=== PATIENT | female | born 1935 | race Caucasian/White ===

== ENCOUNTER 2017-06-11 10:24 | Inpatient (IN) ==
--- NOTE | 2017-06-11 13:13 | Internal Med History&Physical ---
Medical - H&P: HPI Patient information: Note initiated : 06/11/17 at 1:11 pm Service Date, if different from initiated Date: [] Patient: Sarahi Gregory 82 y/o F admitted on 06/11/17 for Refractory Acute Nausea/vomitting, renal failure. Chief Complaint: [] History of present illness: Ms. Gregory is a 82 year old F with a history of atrial fibrillation, on warfarin, hypertension, CKD stage III. She is admitted from Dr. Sauceda's office for worsening renal function in the setting of ongoing nausea and vomiting History is obtained in speaking with the patient, as well as reviewing old records as summarized below. Patient states for the last 2-3 weeks she has had constant nausea when she is moving. When she gets up from supine position to start moving around she becomes nauseated and has emesis. She also has emesis after almost any oral intake, regurgitating partially digested food. If she is able to lie down after a bout of emesis, the nausea passes because of this she's had poor oral intake for over 2 weeks. This is not associated with vertiginous or lightheaded symptoms. She does have a history of vertigo, associated with rolling in the bed were arising rapidly, those symptoms last occurred several years ago. Her current symptoms are not similar. She is experienced no lightheadedness, presyncopal changes, vision changes associated with her nausea. It is also not associated with abdominal pain, odynophagia or dysphagia. She does have a history of reflux and erosive esophagitis, which were associated with heartburn like symptoms. She is currently not having any of those symptoms. She remains on a PPI. She's had no hearing changes, no tinnitus, no vertigo. She's had no fevers, chills, face pressure, sinus or nasal congestion. She's had no gait disturbances, no vision changes, no discoordination, no focal weaknesses. The patient had been on prior DEXA for stroke prophylaxis, that was stopped about 2 months ago and switched to warfarin. That was stopped on Thursday to see if warfarin was causing her symptoms, if anything she thinks they may be a little worse. She had Zofran on hand at home from a prior UTI which is associated with nausea, that is not helped her symptoms. During this time, she has had about a 10 pound weight loss. She had labs drawn on the in preparation for an office visit with Dr. Sauceda today. Her creatinine at baseline is 1.8 at last check, it was 3.5. Urinalysis at that time did not indicate urinary tract infection. She is now being admitted for acute renal failure chronic kidney disease and intractable nausea and vomiting. All systems: reviewed and no additional remarkable complaints except as stated Medical - H&P: PMH Medical history: Hypertensive renal disease (Chronic) Hypertension, essential (Chronic) Hyperlipidemia (Chronic) Chronic kidney disease, stage III (moderate) (Chronic) Hypercalcemia (Chronic) Hypokalemia (Chronic) Atrial fibrillation (Chronic) Anxiety disorder (Chronic) Allergic rhinitis (Chronic) Sleep apnea (Chronic) Prediabetes (Chronic) Osteoporosis (Chronic) Obesity (Chronic) Fracture of radius and ulna, closed (Chronic) Esophageal reflux (Chronic) Dysphagia (Chronic) Depressive disorder (Chronic) Basal cell carcinoma of skin (Chronic) Postmenopausal atrophic vaginitis (Chronic) Open fracture of alveolar ridge of maxilla (Acute) Encounter for surgical aftercare following surgery of nervous system (Chronic) 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) Surgical history: History of varicose vein stripping (Chronic) 1971 Status post JUMANA-BSO (Chronic) 1982 History of surgery (Chronic) 11/17/2013; Excision; Skin, lower lip History of discectomy (Chronic) 1978; For ruptured disc History of removal of cyst (Chronic) 1998; Finger History of arthroscopy (Chronic) 1997; Bilateral torn cartilage History of appendectomy (Chronic) 1955 Pertinent family history: Mother Family history of malignant neoplasm of ovary Hypertension Father Hypertension Social history: smoking status: Never smoker alcohol intake frequency: does not drink Medical - H&P: Meds Home Medications Medication Instructions Recorded Confirmed Type diltiazem HCl, Sustained Release 1 cap PO BID 11/15/14 06/11/17 History ascorbic acid (vitamin C) 1,000 mg 1 g PO QDAY tab 01/07/16 06/11/17 History tablet cholecalciferol (vitamin D3) 1,000 1,000 unit PO QDAY #30 cap 09/11/16 06/11/17 Rx unit capsule venlafaxine ER 150 mg 150 mg PO QDAY #90 cap 04/06/17 06/11/17 Rx capsule,extended release 24 hr spironolactone 25 mg tablet 12.5 mg PO QDAY #15 tab 06/09/17 06/11/17 Rx Allergies Allergy/AdvReac Type Severity Reaction Status Date / Time metformin AdvReac Intermediate Dizziness Verified 06/11/17 09:42 lisinopril AdvReac Mild Fatigued Verified 06/11/17 09:42 Medical - H&P: Exam - Constitutional Vitals: Temp Pulse Resp BP Pulse Ox 96.8 F L 93 H 18 134/98 93 06/11/17 12:24 06/11/17 12:24 06/11/17 12:24 06/11/17 12:24 06/11/17 12:24 Exam: General: Alert, in no acute distress HEENT: Normocephalic. Pupils are equally round and reactive to direct and indirect light. Extraocular movements are intact, no horizontal or vertical nystagmus. Sclera are anicteric. No conjunctival injection. Oropharynx is with moist mucous membranes, no lip or gum lesions. Tongue is midline. Neck: Supple, no meningismus. No thyromegaly. Chest: Clear to auscultation bilaterally with no rales or wheezes. No accessory muscle use. Cardiovascular: Irregularly irregular with 2/6 systolic murmur across the precordium. Carotid pulses are 2+ without bruit. There is no lower extremity edema. JVP is normal. Abdomen: Soft, no epigastric or other tenderness, no guarding or rebound. Active bowel sounds. No hepatosplenomegaly. Lymphatic: No cervical or supraclavicular lymphadenopathy. Skin: Warm, dry. No rash. Skin turgor is decreased Musculoskeletal: No joint erythema or tenderness. Normal range of motion in the upper and lower extremities. Digits without cyanosis or clubbing. Neuro: Alert, oriented X3. Cranial nerves II through XII intact (visual fileds not tested). Sensation intact to light touch. Strength is 5/5 in the upper and lower extremities. DTR 2+ at the biceps and patella. Muscle tone is normal, no clonus. Finger-nose testing and rapid alternating movements intact. Psychiatric: Affect and orientation are normal. Good insight. Medical - H&P: Reslt - Labs Labs: White count 6.9, hemoglobin 14.3, platelet count 292,000 with 78% neutrophils, 14% lymphocytes on differential. Sodium 134, potassium 3.7, chloride 91, bicarbonate 23, BUNs 35, creatinine 3.2. Random glucose 149. Magnesium 1.3. Liver enzymes normal. Proteins normal. Urinalysis from June 08, proteinuria, negative nitrite, negative leukocyte esterase, 7 white cells, 2 squamous cells, no bacteria, 4 hyaline casts. Culture with skin and genital judy. Medical - H&P: A/P (1) Nausea and vomiting Current visit: Yes Status: Acute (2) Acute on chronic renal failure Current visit: Yes Status: Acute (3) Atrial fibrillation Current visit: Yes Status: Chronic (4) Esophageal reflux Current visit: Yes Status: Chronic - Narrative A/P Narrative: 82-year-old female presents with acute on chronic renal failure in association with ongoing nausea, vomiting, inadequate oral intake and weight loss. Acute on chronic renal failure. Suspect this is secondary to prerenal causes and plan depletion secondary to poor intake. Urine sediment was generally bland on the . No evidence for urinary tract infection. No new nephrotoxic medications. Plan: Inpatient admission Hydration Follow intake and output Trend creatinine Renal dose medications Nephrology consultation. Nausea and vomiting, persistent. Not associated with other GI symptoms, not associated with TRUCK DRIVING symptoms. Does not appear to be stricture related/ regurgitating undigested food either. Unclear etiology. TRUCK DRIVING process is possibility, either hemorrhagic or ischemic stroke given her underlying atrial fibrillation and anticoagulation. Mass remains a possibility as well. Reassuringly, her neuro exam is normal. It is possible her symptoms started as a gastroenteritis and then worsened as she became uremic and had become self- perpetuating. Plan: CT of the head to rule out mass, anti-emetics, hydration, follow exam Atrial fibrillation. On warfarin for stroke prophylaxis. When she stopped taking warfarin a few days ago, that did not change her symptoms. Plan: Continue diltiazem for rate control, warfarin for stroke prophylaxis. Gastroesophageal reflux. Remains on a PPI. No reflux symptoms or epigastric tenderness on exam to suggest her current symptoms are associated with gastritis or ulcer disease. However if symptoms persist and workup is otherwise negative, may need to involve GI. Plan: Continue with PPI Hypertension. Patient remains mildly hypertensive, unclear if she was able to keep down her medications as morning. Plan: Continue home regimen, except hold spironolactone given her volume depletion. Prophylaxis: Patient is anticoagulated with warfarin. PPI. CODE STATUS: Discussed with patient, DO NOT RESUSCITATE Medical - H&P: Qual - VTE Deep Vein Thrombosis/Pulmonary Embolism Present on Admission: No
[2017-06-11] MEDS ORDERED: ACETAMINOPHEN 325 MG TABLET PO PRN (14:20)
[2017-06-11] MEDS ORDERED: PROCHLORPERAZINE 10 MG/2 ML VIAL IV PRN (14:20)
[2017-06-11] MEDS ORDERED: MAGNESIUM SULFATE IV ONE (14:29)
[2017-06-11] MEDS ORDERED: SODIUM CHLORIDE 0.9% IV ONE (14:29)
[2017-06-11] MEDS: 0.9 % SODIUM CHLORIDE 1,000 ML IV SCH (15:15)
--- NOTE | 2017-06-11 15:21 | Cat Scan Report ---
History: Refractory nausea and vomiting, evaluate for intracranial lesion Findings: The brain was imaged without contrast at 2.5 mm intervals. There are large confluent areas of decreased attenuation in the white matter throughout the frontal and parietal and to lesser extent the occipital lobes and posterior temporal lobes. This is a chronic finding which was seen at the time of the prior facial CT done on 07/21/16. No infarct is detected. There is no hemorrhage or mass effect. There is mild generalized cerebral atrophy both above and below the tentorium. The ventricles are prominent but proportionate to the atrophy. There is no abnormal extra-axial fluid collection. Visualized sinuses are clear. Impression: 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 Mild generalized cerebral atrophy No acute abnormality Interpreted and Authenticated by: Harley Mittal 06/11/17
--- NOTE | 2017-06-11 17:16 | Nephrology Consult Note ---
History of Present Illness - Reason for Consult Patient information: Note initiated : 06/11/17 at 5:14 pm Service Date, if different from initiated Date: [] Patient: Sarahi Gregory 82 y/o F admitted on 06/11/17 for Refractory Acute Nausea/vomitting, renal failure. Chief Complaint: [] Consult date: 06/11/17 acute renal failure - Chief Complaint nausea, vomiting - History of Present Illness Patient is a 82 y/o pleasant white female with PMH of HTN, Afib, CKD and other medical issues who is admitted from my clinic for acute on chronic renal failure and refractory nausea, vomiting Patient states she has nausea, vomiting for the last 3 weeks, started suddenly, symptoms when she eats and is in sitting position, symptoms resolves when she lays down She has no c/o abdominal pain, she has no h/o constipation no fever Has progressive weight loss no edema, no SOB, CP no urinary symptoms saw PCP 2 days ago, was asked to stop PPI and coumadin, no relief of symptoms with this no sick contacts no other issues Review of Systems All systems PM: reviewed and no additional remarkable complaints except as stated (as in HPI) Past History Past medical history: Encounter for surgical aftercare following surgery of nervous system Chronic Hypertensive renal disease Chronic Hypercalcemia Chronic Hypokalemia Chronic Asymptomatic varicose veins of lower extremity Chronic Sleep apnea Chronic Prediabetes Chronic Osteoporosis Chronic Obesity Chronic Hypertension, essential Chronic Hyperlipidemia Chronic Fracture of radius and ulna, closed Chronic Esophageal reflux Chronic Dysphagia Chronic Depressive disorder Chronic Chronic kidney disease, stage III (moderate) Chronic Basal cell carcinoma of skin Chronic Postmenopausal atrophic vaginitis Chronic Atrial fibrillation Chronic Anxiety disorder Chronic Allergic rhinitis Chronic Open fracture of alveolar ridge of maxilla Acute + Past surgical history: History of varicose vein stripping Chronic Status post JUMANA-BSO Chronic History of surgery Chronic History of discectomy Chronic History of removal of cyst Chronic History of arthroscopy Chronic History of appendectomy Past family history: Family history of malignant neoplasm of ovary Mother Hypertension Mother Hypertension Father Past social history: LIVES ALONE, has daughter in town no current addictions Medications and Allergies Home Medications Medication Instructions Recorded Confirmed Type diltiazem HCl, Sustained Release 1 cap PO BID 11/15/14 06/11/17 History ascorbic acid (vitamin C) 1,000 mg 1 g PO QDAY tab 01/07/16 06/11/17 History tablet cholecalciferol (vitamin D3) 1,000 1,000 unit PO QDAY #30 cap 09/11/16 06/11/17 Rx unit capsule venlafaxine ER 150 mg 150 mg PO QDAY #90 cap 04/06/17 06/11/17 Rx capsule,extended release 24 hr spironolactone 25 mg tablet 12.5 mg PO QDAY #15 tab 06/09/17 06/11/17 Rx Allergies Allergy/AdvReac Type Severity Reaction Status Date / Time metformin AdvReac Intermediate Dizziness Verified 06/11/17 09:42 lisinopril AdvReac Mild Fatigued Verified 06/11/17 09:42 Exam - Vital Signs Vital signs: Temp Pulse Resp BP Pulse Ox 97.7 F 78 18 123/83 98 06/11/17 16:00 06/11/17 16:00 06/11/17 16:00 06/11/17 16:00 06/11/17 16:00 - General Appearance General appearance: appears started age EENT: mucous membranes moist Neck: no JVD Cardiology: no rub, no edema, irregular rhythm Gastrointestinal: no tenderness, no guarding Integumentary: warm and dry Neurologic: alert and oriented x3 Musculoskeletal: no erythema, no clubbing Psychiatric: mood/affect appropriate Assessment and Plan (1) Acute on chronic renal failure Patient with significant decline in renal function, s.creatinine 3.5-3.2, baseline is at 1.8 likely from pre renal state from refractory nausea, vomiting will admit for IV hydration, evaluation/management of GI symptoms will hold spironolactone nausea, vomiting, ? etiology: on PPI, head CT negative if does not improve will ? need GI eval/EGD will follow along Appreciate Dr Killian's help in managing this pt Status: Acute
[2017-06-11] MEDS: DILTIAZEM 180 MG CAP.XL.24H PO SCH (21:00)
[2017-06-11] MEDS: 0.9 % SODIUM CHLORIDE 10 ML SYRINGE IV SCH (21:00)
[2017-06-12] MEDS: 0.9 % SODIUM CHLORIDE 1,000 ML IV SCH ×3 (02:27→16:28)
[2017-06-12 02:57] LABS: Appearance,Urine CLEAR; Bilirubin,Urine NEG (NEG); Color,Urine STRAW; Glucose,Urine (UA) NEGATIVE (NEG); Leukocyte Esterase,Urine NEG /uL (NEG); Protein,Urine NEG (NEG); Specific Gravity,Urine 1.005 (1.000-1.035); Urine Blood NEG mg/dL (<0.03); Urobilinogen,Urine NEG (NEG)
[2017-06-12] MEDS: 0.9 % SODIUM CHLORIDE 10 ML SYRINGE IV SCH ×3 (04:55→21:35)
[2017-06-12] MEDS: ONDANSETRON 4 MG/2 ML VIAL IV PRN (07:16)
[2017-06-12] MEDS: PANTOPRAZOLE 40 MG VIAL IV SCH (07:17)
[2017-06-12 08:04] LABS: ALT/SGPT 11 U/l (0-40); Albumin/Globulin Ratio 1.7 (1.0-2.3); Alkaline Phosphatase 91 U/L (39-117); Bilirubin,Direct < 0.2 mg/dL (0.0-0.3); Blood Urea Nitrogen 29 mg/dl (8-23); Gamma Glutamyl Transpeptidase 27 U/L (5-36); Uric Acid 8.6 mg/dL (2.5-8.0)
[2017-06-12] MEDS: VENLAFAXINE 150 MG CAP.XL.24H PO SCH (09:03)
[2017-06-12] MEDS: DILTIAZEM 180 MG CAP.XL.24H PO SCH ×2 (09:03→20:52)
--- NOTE | 2017-06-12 15:03 | Nephrology Progress Note ---
Subjective Patient information: Note initiated : 06/12/17 at 3:00 pm Service Date, if different from initiated Date: [] Patient: Sarahi Gregory 82 y/o F admitted on 06/11/17 for Refractory Acute Nausea/Vomitting, Renal Failure. Chief Complaint: [] Principal diagnosis: nausea, vomiting, YVAN Interval history: Nausea overnight, got zofran this am and no concerns since CT head negative no SOB, CP s.creat down to 2.6 Pertinent ROS: as above Objective - Vital Signs Vital signs: Vital Signs Temp Pulse Pulse Pulse Resp BP Pulse Ox 06/12/17 12:00 96.9 F L 16 164/76 98 06/12/17 11:13 97.8 F 12 123/70 94 06/12/17 09:09 76 06/12/17 08:06 52 L 98 06/12/17 07:15 54 L 16 98 06/12/17 06:57 97.7 F 52 L 14 126/84 98 06/12/17 04:00 98.0 F 68 18 121/87 97 06/11/17 23:32 97.9 F 74 10 L 132/90 96 06/11/17 20:11 12 96 06/11/17 20:00 97.9 F 74 12 130/80 96 06/11/17 16:00 97.7 F 78 18 123/83 98 Intake and Output 06/12/17 06/12/17 06/12/17 05:59 13:59 21:59 Intake Total 1000 / 1000 2520 / 2520 Output Total 575 / 575 600 / 600 Balance 425 / 425 1920 / 1920 Intake: IV 1000 / 1000 1000 / 1000 Sodium Chloride 0.9% 1,000 ml @ 1000 / 1000 1000 / 1000 100 mls/hr IV .Q10H [facility]ILUZ Rx#: [id number] Oral 1520 / 1520 Output: Void Amount 575 / 575 600 / 600 Other: Meal Breakfast Percent of Meal Consumed Clear Liq # Voids 1 # Bowel Movements 1 Weight 164 lb Patient Weight 06/13/17 05:59 Weight 164 lb Intake & Output: Intake & Output 06/12/17 06/12/17 06/12/17 05:59 13:59 21:59 Intake Total 1000 / 1000 2520 / 2520 Output Total 575 / 575 600 / 600 Balance 425 / 425 1920 / 1920 Weight 164 lb Intake: IV 1000 / 1000 1000 / 1000 Sodium Chloride 0.9% 1,000 ml @ 1000 / 1000 1000 / 1000 100 mls/hr IV .Q10H [facility]UZ Rx#: [id number] Oral 1520 / 1520 Output: Void Amount 575 / 575 600 / 600 Other: Meal Breakfast Percent of Meal Consumed Clear Liq # Voids 1 # Bowel Movements 1 - General Appearance General appearance: appears started age EENT: mucous membranes moist Neck: no JVD Respiratory: clear Cardiology: no edema, irregular rhythm Gastrointestinal: no tenderness, no guarding Integumentary: warm and dry Neurologic: alert and oriented x3 Musculoskeletal: no erythema, no cyanosis Psychiatric: mood/affect appropriate - Lab 06/12/17 05:18 Most recent lab results Calcium 9.1 mg/dl (8.6-10.4) 06/12/17 05:18 Phosphorus 3.1 mg/dL (2.7-4.5) 06/12/17 05:18 Magnesium 2.4 mg/dL (1.6-2.5) 06/12/17 05:18 Assessment and Plan (1) Acute on chronic renal failure acute on chronic renal failure likely related to pre renal state s.creatinine 3.5-3.2-2.6, improving non oliguric able to tolerate oral liquids will cut back on IVF and if no further vomiting can stop tomorrow would hold spironolactone for now will follow along Status: Acute
--- NOTE | 2017-06-12 20:45 | Internal Med Progress Note ---
Medical - PN: Subj Patient information: Note initiated : 06/12/17 at 8:43 pm Service Date, if different from initiated Date: [] Patient: Sarahi Gregory 82 y/o F admitted on 06/11/17 for Refractory Acute Nausea/Vomitting, Renal Failure. Chief Complaint: f/u ARF, n/v Interval history: 06/11-Patient states for the last 2-3 weeks she has had constant nausea when she is moving. When she gets up from supine position to start moving around she becomes nauseated and has emesis. She also has emesis after almost any oral intake, regurgitating partially digested food. If she is able to lie down after a bout of emesis, the nausea passes because of this she's had poor oral intake for over 2 weeks. This is not associated with vertiginous or lightheaded symptoms. She does have a history of vertigo, associated with rolling in the bed were arising rapidly, those symptoms last occurred several years ago. Her current symptoms are not similar. She is experienced no lightheadedness, presyncopal changes, vision changes associated with her nausea. It is also not associated with abdominal pain, odynophagia or dysphagia. She does have a history of reflux and erosive esophagitis, which were associated with heartburn like symptoms. She is currently not having any of those symptoms. She remains on a PPI. 06/12-doing better when seen in late morning. Was nauseated overnight, did not receive Zofran to this morning, as had no nausea since then. Was able to tolerate some by mouth intake. No abdominal pain. No hematemesis. - Constitutional Vitals: Vital Signs Temp Pulse Resp BP Pulse Ox 97.4 F 71 16 132/80 97 06/12/17 19:28 06/12/17 19:30 06/12/17 19:30 06/12/17 19:28 06/12/17 19:28 Period Temp Pulse Resp BP Sys/Wilcox Pulse Ox Last 24 Hr 96.9 F-98.0 F 52-76 10-18 120-164/70-90 94-98 Intake and Output 06/12/17 06/12/17 06/12/17 05:59 13:59 21:59 Intake Total 1000 / 1000 2520 / 2520 488 / 488 Output Total 575 / 575 600 / 600 1650 / 1650 Balance 425 / 425 1920 / 1920 -1162 / -1162 Weight 164 lb Patient Weight 06/13/17 05:59 Weight 164 lb Intake & Output: Intake & Output 06/12/17 06/12/17 06/12/17 05:59 13:59 21:59 Intake Total 1000 / 1000 2520 / 2520 488 / 488 Output Total 575 / 575 600 / 600 1650 / 1650 Balance 425 / 425 1920 / 1920 -1162 / -1162 Weight 164 lb Intake: IV 1000 / 1000 1000 / 1000 388 / 388 Sodium Chloride 0.9% 1,000 ml @ 1000 / 1000 1000 / 1000 388 / 388 100 mls/hr IV .Q10H [facility] Rx#: [id number] Oral 1520 / 1520 100 / 100 Output: Void Amount 575 / 575 600 / 600 1650 / 1650 Other: Meal Breakfast Percent of Meal Consumed Clear Liq # Voids 1 1 # Bowel Movements 1 Exam: General: Sitting on the edge of the bed in no acute distress Chest: Clear to auscultation, good effort Cardiovascular: Regular, no edema Abdomen: Soft, nontender, active bowel sounds Neuro: Alert, oriented, nonfocal Medical - PN: Obj Da - Labs CBC & Chem 7: 06/12/17 05:18 Labs: Abnormal Lab Results 06/12/17 06/12/17 06/11/17 05:18 05:18 14:41 PT 32.4 H 35.2 H INR 3.0 H 3.3 H Anion Gap 17.0 H BUN 29 H Creatinine 2.6 H Uric Acid 8.6 H Meds: Medications Acetaminophen (Tylenol) 650 mg PO Q6HP PRN PRN Reason: PAIN/FEVER > 101 Diltiazem HCl (Cardizem Cd) 180 mg PO BID [facility] Last Admin: 06/12/17 09:03 Dose: 180 mg Sodium Chloride (Sodium Chloride 0.9%) 1,000 mls @ 50 mls/hr IV .Q20H [facility] Last Admin: 06/12/17 16:28 Dose: 50 mls/hr Ondansetron HCl (Zofran) 4 mg IV Q6HP PRN PRN Reason: Nausea And Vomiting Last Admin: 06/12/17 07:16 Dose: 4 mg Pantoprazole Sodium (Protonix) 40 mg IV QAMAC [facility] Last Admin: 06/12/17 07:17 Dose: 40 mg Prochlorperazine Edisylate (Compazine) 5 mg IV Q4HP PRN PRN Reason: Nausea And Vomiting Sodium Chloride (Saline Flush) 10 ml IV Q8 [facility] Last Admin: 06/12/17 13:25 Dose: Not Given Venlafaxine HCl (Effexor Xr) 150 mg PO QDAY [facility] Last Admin: 06/12/17 09:03 Dose: 150 mg Warfarin Sodium (Coumadin Per Pharmacy) 1 order PO UD [facility] - Imaging and cardiology CT scan - head Status: image reviewed by me Additional comments: Impression: -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 -Mild generalized cerebral atrophy -No acute abnormality Medical - PN: A/P - Time Spent With Patient Total time spent is greater than 50% in coordination of care (as documented) at patient's floor/unit and/or counseling patient: (1) Nausea and vomiting Status: Acute Current Visit: Yes (2) Acute on chronic renal failure Status: Acute Current Visit: Yes (3) Atrial fibrillation Status: Chronic Current Visit: Yes (4) Esophageal reflux Status: Chronic Current Visit: Yes - Narrative A/P Narrative: 82-year-old female presents with acute on chronic renal failure in association with ongoing nausea, vomiting, inadequate oral intake and weight loss. Acute on chronic renal failure. Improving, Cr down to 2.6. Suspect this is due to prerenal causes and volume depletion. Plan: continue with hydration, follow creatinine, hold diuretics Nausea and vomiting, persistent. Improved after dose of IV Zofran this morning. Unclear etiology. CT of the head is negative for mass effect. Abdomen remains quite benign. Plan: Continue with anti-emetics, hydration, follow exam Atrial fibrillation. On warfarin for stroke prophylaxis. When she stopped taking warfarin a few days ago, that did not change her symptoms. Plan: Continue diltiazem for rate control, warfarin for stroke prophylaxis. Gastroesophageal reflux. Remains on a PPI. No reflux symptoms or epigastric tenderness on exam to suggest her current symptoms are associated with gastritis or ulcer disease. Plan: Continue with PPI Hypertension.. Plan: Continue home regimen, except hold spironolactone given her volume depletion. Medical - PN: Qual - VTE Deep Vein Thrombosis/Pulmonary Embolism Present on Admission: No
[2017-06-13] MEDS: ONDANSETRON 4 MG/2 ML VIAL IV PRN ×2 (04:30→12:35)
[2017-06-13 06:04] LABS: ALT/SGPT 11 U/l (0-40); Albumin 3.9 gm/dL (3.2-5.2); Albumin/Globulin Ratio 1.6 (1.0-2.3); Alkaline Phosphatase 89 U/L (39-117); Bilirubin,Direct < 0.2 mg/dL (0.0-0.3); Blood Urea Nitrogen 22 mg/dl (8-23); Gamma Glutamyl Transpeptidase 25 U/L (5-36); Uric Acid 7.8 mg/dL (2.5-8.0)
[2017-06-13] MEDS: 0.9 % SODIUM CHLORIDE 10 ML SYRINGE IV SCH ×3 (06:12→22:30)
[2017-06-13] MEDS: 0.9 % SODIUM CHLORIDE 1,000 ML IV SCH ×2 (06:12→14:28)
[2017-06-13] MEDS: PANTOPRAZOLE 40 MG VIAL IV SCH (08:03)
[2017-06-13] MEDS: VENLAFAXINE 150 MG CAP.XL.24H PO SCH (09:20)
[2017-06-13] MEDS: DILTIAZEM 180 MG CAP.XL.24H PO SCH ×2 (09:20→21:06)
[2017-06-13] MEDS ORDERED: POTASSIUM CHLORIDE 20 MEQ in DEXTROSE 5% IN WATER 250 ML IV ONE (12:06)
--- NOTE | 2017-06-13 12:30 | Nephrology Progress Note ---
Subjective Patient information: Note initiated : 06/13/17 at 12:28 pm Service Date, if different from initiated Date: [] Patient: Sarahi Gregory 82 y/o F admitted on 06/11/17 for Refractory Acute Nausea/Vomitting, Renal Failure. Chief Complaint: [] Principal diagnosis: nausea, vomiting, YVAN Interval history: seen this am nausea controlled with zofran just once a day patient is able to eat and keep this down no dizziness she has good urinary output and her renal function continues to improve slowly no edema,d enies SOB, CP no other concerns Pertinent ROS: as above Objective - Vital Signs Vital signs: Vital Signs Temp Pulse Pulse Pulse Resp BP BP 06/13/17 11:25 98.4 F 16 139/88 06/13/17 06:41 98 F 18 143/90 06/13/17 04:00 97.9 F 72 16 135/72 06/12/17 23:41 97.6 F 65 16 134/82 06/12/17 19:30 71 71 16 06/12/17 19:28 97.4 F 71 71 16 132/80 06/12/17 15:22 97.3 F 16 124/81 06/12/17 14:29 124/81 BP BP Pulse Ox 06/13/17 11:25 96 06/13/17 06:41 95 06/13/17 04:00 97 06/12/17 23:41 97 06/12/17 19:30 06/12/17 19:28 97 06/12/17 15:22 96 06/12/17 14:29 120/79 134/70 Intake and Output 06/12/17 06/13/17 06/13/17 21:59 05:59 13:59 Intake Total 488 / 488 200 / 200 1827 / 1827 Output Total 1650 / 1650 1050 / 1050 750 / 750 Balance -1162 / -1162 -850 / -850 1077 / 1077 Intake: IV 388 / 388 687 / 687 Sodium Chloride 0.9% 1,000 ml @ 388 / 388 687 / 687 50 mls/hr IV .Q20H MARILUZ Rx#: [id number] Oral 100 / 100 200 / 200 1140 / 1140 Output: Void Amount 1650 / 1650 550 / 550 750 / 750 # of times incontinent of urine 500 / 500 Other: Meal Breakfast Feeding Ability Independent # Voids 1 Weight 165 lb Intake & Output: Intake & Output 06/12/17 06/13/17 06/13/17 21:59 05:59 13:59 Intake Total 488 / 488 200 / 200 1827 / 1827 Output Total 1650 / 1650 1050 / 1050 750 / 750 Balance -1162 / -1162 -850 / -850 1077 / 1077 Weight 165 lb Intake: IV 388 / 388 687 / 687 Sodium Chloride 0.9% 1,000 ml @ 388 / 388 687 / 687 50 mls/hr IV .Q20H MARILUZ Rx#: [id number] Oral 100 / 100 200 / 200 1140 / 1140 Output: Void Amount 1650 / 1650 550 / 550 750 / 750 # of times incontinent of urine 500 / 500 Other: Meal Breakfast Feeding Ability Independent # Voids 1 - General Appearance General appearance: appears started age EENT: mucous membranes moist Neck: no JVD Respiratory: clear Cardiology: no rub, no edema, irregular rhythm Gastrointestinal: no tenderness, no guarding Integumentary: no rash, warm and dry Neurologic: alert and oriented x3 Musculoskeletal: no erythema, no cyanosis Psychiatric: mood/affect appropriate - Lab 06/13/17 04:17 Most recent lab results Calcium 9.1 mg/dl (8.6-10.4) 06/13/17 04:17 Phosphorus 3.0 mg/dL (2.7-4.5) 06/13/17 04:17 Magnesium 1.8 mg/dL (1.6-2.5) 06/13/17 04:17 Assessment and Plan (1) Acute on chronic renal failure acute on chronic renal failure likely related to pre renal state s.creatinine 3.5-3.2-2.6-2.2, improving non oliguric will stop IV fluids will give K replacement she has h/o hypokalemia and spironolactone has helped, however will hold to ensure renal function improves to baseline educated to have foods high in K on discharge will repeat labs early next week and follow on thursday on discharge Requested patient to schedule follow up with Ms Alfaro for GI follow up to ensure no concerns that are causing nausea, vomiting Status: Acute
--- NOTE | 2017-06-13 13:45 | Internal Med Progress Note ---
Medical - PN: Subj Patient information: Note initiated : 06/13/17 at 1:43 pm Service Date, if different from initiated Date: [] Patient: Sarahi Gregory 82 y/o F admitted on 06/11/17 for Refractory Acute Nausea/Vomitting, Renal Failure. Chief Complaint: follow up acute renal failure, nausea and vomiting Interval history: 06/11-Patient states for the last 2-3 weeks she has had constant nausea when she is moving. When she gets up from supine position to start moving around she becomes nauseated and has emesis. She also has emesis after almost any oral intake, regurgitating partially digested food. If she is able to lie down after a bout of emesis, the nausea passes because of this she's had poor oral intake for over 2 weeks. This is not associated with vertiginous or lightheaded symptoms. She does have a history of vertigo, associated with rolling in the bed were arising rapidly, those symptoms last occurred several years ago. Her current symptoms are not similar. She is experienced no lightheadedness, presyncopal changes, vision changes associated with her nausea. It is also not associated with abdominal pain, odynophagia or dysphagia. She does have a history of reflux and erosive esophagitis, which were associated with heartburn like symptoms. She is currently not having any of those symptoms. She remains on a PPI. 2/2-doing better when seen in late morning. Was nauseated overnight, did not receive Zofran to this morning, as had no nausea since then. Was able to tolerate some by mouth intake. No abdominal pain. No hematemesis. 2/3-patient was feeling better today, symptoms being controlled with Zofran. However late this morning, developed crampy abdominal pain and diarrhea and recurrent nausea and vomiting. Now still with some crampy abdominal pain, some intermittent nausea, though Zofran is controlling it. Was hoping she could go home today, now is feeling worse due to the above. - Constitutional Vitals: Vital Signs Temp Pulse Resp BP Pulse Ox 98.4 F 72 16 139/88 96 06/13/17 11:25 06/13/17 04:00 06/13/17 11:25 06/13/17 11:25 06/13/17 11:25 Period Temp Pulse Resp BP Sys/Wilcox Pulse Ox Last 24 Hr 97.3 F-98.4 F 65-72 16-18 120-143/70-90 95-97 Intake and Output 06/12/17 06/13/17 06/13/17 21:59 05:59 13:59 Intake Total 488 / 488 200 / 200 1827 / 1827 Output Total 1650 / 1650 1050 / 1050 900 / 900 Balance -1162 / -1162 -850 / -850 927 / 927 Weight 165 lb Intake & Output: Intake & Output 06/12/17 06/13/17 06/13/17 21:59 05:59 13:59 Intake Total 488 / 488 200 / 200 1827 / 1827 Output Total 1650 / 1650 1050 / 1050 900 / 900 Balance -1162 / -1162 -850 / -850 927 / 927 Weight 165 lb Intake: IV 388 / 388 687 / 687 Sodium Chloride 0.9% 1,000 ml @ 388 / 388 687 / 687 50 mls/hr IV .Q20H MARILUZ Rx#: [id number] Oral 100 / 100 200 / 200 1140 / 1140 Output: Void Amount 1650 / 1650 550 / 550 900 / 900 # of times incontinent of urine 500 / 500 Other: Meal Breakfast Feeding Ability Independent # Voids 1 # Bowel Movements 1 Exam: General: Laying in bed, mildly uncomfortable appearing Chest: Clear Cardiovascular: Irregular, murmur unchanged Abdomen: Soft, active bowel sounds, no tenderness to palpation, no guarding or rebound Neuro: Awake, alert, nonfocal Medical - PN: Obj Da - Labs CBC & Chem 7: 06/13/17 04:17 Labs: Abnormal Lab Results 06/13/17 06/13/17 06/12/17 04:17 04:17 05:18 PT 30.6 H INR 2.8 H Potassium 3.2 L Anion Gap 17.0 H BUN 29 H Creatinine 2.2 H 2.6 H Glucose 112 H Uric Acid 8.6 H 06/12/17 06/11/17 05:18 14:41 PT 32.4 H 35.2 H INR 3.0 H 3.3 H Potassium Anion Gap BUN Creatinine Glucose Uric Acid Meds: Medications Acetaminophen (Tylenol) 650 mg PO Q6HP PRN PRN Reason: PAIN/FEVER > 101 Diltiazem HCl (Cardizem Cd) 180 mg PO BID [facility] Last Admin: 06/13/17 09:20 Dose: 180 mg Potassium Chloride 20 meq/ (Dextrose) 260 mls @ 130 mls/hr IV ONCE ONE Stop: 06/13/17 14:05 Last Admin: 06/13/17 12:35 Dose: 130 mls/hr Ondansetron HCl (Zofran) 4 mg IV Q6HP PRN PRN Reason: Nausea And Vomiting Last Admin: 06/13/17 12:35 Dose: 4 mg Pantoprazole Sodium (Protonix) 40 mg IV QAMAC [facility] Last Admin: 06/13/17 08:03 Dose: 40 mg Prochlorperazine Edisylate (Compazine) 5 mg IV Q4HP PRN PRN Reason: Nausea And Vomiting Sodium Chloride (Saline Flush) 10 ml IV Q8 [facility] Last Admin: 06/13/17 06:12 Dose: Not Given Venlafaxine HCl (Effexor Xr) 150 mg PO QDAY [facility] Last Admin: 06/13/17 09:20 Dose: 150 mg Warfarin Sodium (Coumadin Per Pharmacy) 1 order PO UD [facility] Warfarin Sodium (Coumadin) 5 mg PO ONCE@1400 ONE Stop: 06/13/17 14:01 Medical - PN: A/P (1) Nausea and vomiting Status: Acute Current Visit: Yes (2) Acute on chronic renal failure Status: Acute Current Visit: Yes (3) Atrial fibrillation Status: Chronic Current Visit: Yes (4) Esophageal reflux Status: Chronic Current Visit: Yes - Narrative A/P Narrative: 82-year-old female presents with acute on chronic renal failure in association with ongoing nausea, vomiting, inadequate oral intake and weight loss. Acute on chronic renal failure. Improving, Cr down to 2.2. Likely due to prerenal causes and volume depletion. Plan: Saline lock; follow creatinine, hold diuretics; replete K+ Nausea and vomiting. Was improved with hydration and Zofran this morning. Etiology remains unclear. Abdomen remains quite benign. Now with recurrent nausea associated with diarrhea. Etiology of diarrhea may be secondary to resumption of oral intake. No antibiotic exposure. We'll refer back to GI after discharge. Plan: Continue with anti-emetics, follow, not yet ready for discharge due to this new problem. Atrial fibrillation. On warfarin for stroke prophylaxis. When she stopped taking warfarin a few days ago, that did not change her symptoms. Plan: Continue diltiazem for rate control, warfarin for stroke prophylaxis. Gastroesophageal reflux. Remains on a PPI. No reflux symptoms or epigastric tenderness on exam to suggest her current symptoms are associated with gastritis or ulcer disease. Plan: Continue with PPI Hypertension. Plan: Continue home regimen, except hold spironolactone given her volume depletion. Medical - PN: Qual - VTE Deep Vein Thrombosis/Pulmonary Embolism Present on Admission: No
[2017-06-13] MEDS ORDERED: WARFARIN 5 MG TABLET PO ONE (14:00)
[2017-06-14] MEDS: 0.9 % SODIUM CHLORIDE 10 ML SYRINGE IV SCH ×2 (06:12→14:06)
[2017-06-14] MEDS: PANTOPRAZOLE 40 MG VIAL IV SCH (07:29)
[2017-06-14 07:33] LABS: ALT/SGPT 10 U/l (0-40); Albumin 3.8 gm/dL (3.2-5.2); Albumin/Globulin Ratio 1.6 (1.0-2.3); Alkaline Phosphatase 88 U/L (39-117); Bilirubin,Direct < 0.2 mg/dL (0.0-0.3); Blood Urea Nitrogen 17 mg/dl (8-23); Gamma Glutamyl Transpeptidase 25 U/L (5-36); Uric Acid 7.1 mg/dL (2.5-8.0)
[2017-06-14] MEDS ORDERED: POTASSIUM PHOSPHATE 20 MEQ in DEXTROSE 5% IN WATER 250 ML IV ONE (08:22)
[2017-06-14] MEDS ORDERED: POTASSIUM CHLORIDE 40 MEQ in DEXTROSE 5% IN WATER 500 ML IV ONE (08:30)
[2017-06-14] MEDS: VENLAFAXINE 150 MG CAP.XL.24H PO SCH (08:45)
[2017-06-14] MEDS: DILTIAZEM 180 MG CAP.XL.24H PO SCH (08:45)
[2017-06-14] MEDS ORDERED: MAGNESIUM SULFATE 32.48 MEQ in DEXTROSE 5% IN WATER 100 ML IV ONE (09:15)
--- NOTE | 2017-06-14 09:58 | Nephrology Progress Note ---
Subjective Patient information: Note initiated : 06/14/17 at 9:52 am Service Date, if different from initiated Date: [] Patient: Sarahi Gregory 82 y/o F admitted on 06/11/17 for Refractory Acute Nausea/Vomitting, Renal Failure. Chief Complaint: [] Principal diagnosis: nausea, vomiting, YVAN Interval history: Patient had 2-3 episodes of diarrhea followed by vomiting and since then she states she has been feeling well received zofran once no further diarrhea, no abdominal pain no SOB, CP, edema no other issues Pertinent ROS: as above Objective - Vital Signs Vital signs: Vital Signs Temp Pulse Pulse Pulse Pulse Resp BP 06/14/17 07:21 97.5 F 18 142/89 06/14/17 04:00 98.0 F 65 18 133/75 06/14/17 00:00 98.3 F 75 16 146/96 06/13/17 20:00 98.3 F 66 16 141/93 06/13/17 15:20 98 F 18 133/85 06/13/17 14:00 67 90 97 H 06/13/17 11:25 98.4 F 16 139/88 BP BP BP Pulse Ox 06/14/17 07:21 91 06/14/17 04:00 97 06/14/17 00:00 98 06/13/17 20:00 97 06/13/17 15:20 95 06/13/17 14:00 136/85 119/86 113/80 06/13/17 11:25 96 Intake and Output 06/13/17 06/14/17 06/14/17 21:59 05:59 13:59 Intake Total 620 / 620 590 / 590 Output Total 350 / 350 1000 / 1000 300 / 300 Balance 270 / 270 -410 / -410 -300 / -300 Intake: IV 260 / 260 Oral 360 / 360 590 / 590 Output: Void Amount 350 / 350 1000 / 1000 300 / 300 Other: Weight 164 lb 8 oz Intake & Output: Intake & Output 06/13/17 06/14/17 06/14/17 21:59 05:59 13:59 Intake Total 620 / 620 590 / 590 Output Total 350 / 350 1000 / 1000 300 / 300 Balance 270 / 270 -410 / -410 -300 / -300 Weight 164 lb 8 oz Intake: IV 260 / 260 Oral 360 / 360 590 / 590 Output: Void Amount 350 / 350 1000 / 1000 300 / 300 - General Appearance General appearance: appears started age, chronically ill EENT: mucous membranes moist Neck: no JVD Respiratory: clear Cardiology: no rub, irregular rhythm Gastrointestinal: no tenderness, no guarding Integumentary: warm and dry Neurologic: alert and oriented x3 Musculoskeletal: no erythema, no clubbing Psychiatric: mood/affect appropriate - Lab 06/14/17 04:16 Most recent lab results Calcium 9.3 mg/dl (8.6-10.4) 06/14/17 04:16 Phosphorus 2.5 mg/dL (2.7-4.5) L 06/14/17 04:16 Magnesium 1.4 mg/dL (1.6-2.5) L 06/14/17 04:16 Assessment and Plan (1) Acute on chronic renal failure acute on chronic renal failure likely related to pre renal state s.creatinine 3.5-3.2-2.6-2.2-2.2 non oliguric did have GI issues yesterday, but since these resolved, patient is fine low K, phos and magnesium due to poor po intake yesterday will replace with K phos and she is getting magnesium rider would discharge her ON poATSSIUM CHLORIDE 10MEQ/DAY recheck labs on thursday and follow on thursday in clinic if able to tolerate solid food no spironolactone to be resumed on discharge Requested patient to schedule follow up with Ms Alfaro for GI follow up to ensure no concerns that are causing nausea, vomiting Status: Acute
[2017-06-14] MEDS ORDERED: WARFARIN 5 MG TABLET PO ONE (14:00)
--- NOTE | 2017-06-14 16:08 | Discharge Summary ---
Medical - DS: Prov Patient information: Note initiated : 06/14/17 at 4:05 pm Service Date, if different from initiated Date: [] Patient: Sarahi Gregory 82 y/o F admitted on 06/11/17 for Refractory Acute Nausea/Vomitting, Renal Failure. Date of admission: 06/11/17 12:03 Discharge date: 06/14/17 Primary care physician: Brodie Posadas Admitting clinician: Myrna Mccormack Discharging clinician: Myrna Mccormack Medical - DS: Meds - Discharge Medications Prescriptions: Potassium Chloride [Kdur] 20 meq PO QAMCC #30 tab Active and Home Medications: Home Medications diltiazem HCl, Sustained Release 1 cap PO BID 11/15/14 [History Confirmed Last Taken 06/11/17 08:00] ascorbic acid (vitamin C) 1,000 mg tablet 1 g PO QDAY tab 01/07/16 [History Confirmed 06/11/17 Last Taken 06/10/17 08:00] cholecalciferol (vitamin D3) 1,000 unit capsule 1,000 unit PO QDAY #30 cap 09/11 [Rx Confirmed 06/11/17 Last Taken 06/10/17 09:00] venlafaxine ER 150 mg capsule,extended release 24 hr 150 mg PO QDAY #90 cap [Rx Confirmed 06/11/17 Last Taken 06/10/17 21:00] spironolactone 25 mg tablet 12.5 mg PO QDAY #15 tab 06/09/17 [Rx Confirmed 06/11 Last Taken 06/11/17 08:00] Medical - DS: Hosp Hospital course: 06/11-Patient states for the last 2-3 weeks she has had constant nausea when she is moving. When she gets up from supine position to start moving around she becomes nauseated and has emesis. She also has emesis after almost any oral intake, regurgitating partially digested food. If she is able to lie down after a bout of emesis, the nausea passes because of this she's had poor oral intake for over 2 weeks. This is not associated with vertiginous or lightheaded symptoms. She does have a history of vertigo, associated with rolling in the bed were arising rapidly, those symptoms last occurred several years ago. Her current symptoms are not similar. She is experienced no lightheadedness, presyncopal changes, vision changes associated with her nausea. It is also not associated with abdominal pain, odynophagia or dysphagia. She does have a history of reflux and erosive esophagitis, which were associated with heartburn like symptoms. She is currently not having any of those symptoms. She remains on a PPI. 2/2-doing better when seen in late morning. Was nauseated overnight, did not receive Zofran to this morning, as had no nausea since then. Was able to tolerate some by mouth intake. No abdominal pain. No hematemesis. 2/3-patient was feeling better today, symptoms being controlled with Zofran. However late this morning, developed crampy abdominal pain and diarrhea and recurrent nausea and vomiting. Now still with some crampy abdominal pain, some intermittent nausea, though Zofran is controlling it. Was hoping she could go home today, now is feeling worse due to the above. 06/14-did well last evening with dinner after her episode of diarrhea and recurrent nausea and vomiting. Was quiet all night long, did well earlier today. Receive potassium phosphate rider to replete those electrolytes. Otherwise stable for home. Creatinine stable 2.2. In summary: Etiology of her persistent nausea and vomiting and admission is unclear, likely is multi-factorial including some uremic affect. She did seem improved after a bout of crampy abdominal pain and diarrhea on the day prior to discharge, a partial obstruction cannot be excluded, though her abdominal exam remained entirely benign throughout her hospital course. With hydration and renal function returned towards normal was 2.2 on the time of discharge. She' ll follow-up with Dr. Sauceda, hold her spironolactone until then. Discharge diagnosis: Acute renal failure on chronic kidney disease Secondary discharge diagnosis: Persistent nausea and vomiting, resolved, unclear etiology. - Time Spent with Patient Total time spent providing and/or coordinating discharge services: Greater than 30 minutes Medical - DS: Exam - Constitutional Vitals: Vital Signs Temp Pulse Pulse Pulse Pulse Resp BP 06/14/17 15:26 97.5 F 18 140/78 06/14/17 14:00 84 83 108 H 06/14/17 11:51 97.8 F 16 148/83 06/14/17 07:21 97.5 F 18 142/89 06/14/17 04:00 98.0 F 65 18 133/75 06/14/17 00:00 98.3 F 75 16 146/96 06/13/17 20:00 98.3 F 66 16 141/93 BP BP BP Pulse Ox 06/14/17 15:26 95 06/14/17 14:00 119/78 111/73 105/74 06/14/17 11:51 91 06/14/17 07:21 91 06/14/17 04:00 97 06/14/17 00:00 98 06/13/17 20:00 97 Intake and Output 06/14/17 06/14/17 06/14/17 05:59 13:59 21:59 Intake Total 590 / 590 480 / 480 480 / 480 Output Total 1000 / 1000 300 / 300 Balance -410 / -410 180 / 180 480 / 480 Intake: Oral 590 / 590 480 / 480 480 / 480 Output: Void Amount 1000 / 1000 300 / 300 Other: Meal Lunch Percent of Meal Consumed 100% Feeding Ability Independent # Voids 1 2 # of times incontinent of 1 Bowels Additional comments: General: Sitting up in chair, looks comfortable, no distress Chest: Clear Cardiac vascular: Irregularly irregular, no edema Abdomen: Active bowel sounds, soft, nontender, no guarding or rebound Neuro: Alert, oriented, nonfocal. Medical - DS: Data Labs on day of discharge: Labs from last 24 hours 06/14/17 06/14/17 06/14/17 15:00 04:16 04:16 PT 29.8 H INR 2.7 H Sodium 135 Potassium Pending 3.2 L Chloride 99 Carbon Dioxide 23 Anion Gap 13.0 BUN 17 Creatinine 2.2 H GFR Calculation 20 Glucose 94 Uric Acid 7.1 Calcium 9.3 Phosphorus 2.5 L Magnesium 1.4 L Total Bilirubin 0.4 Direct Bilirubin < 0.2 GGT 25 AST 13 ALT 10 Alkaline Phosphatase 88 Lactate Dehydrogenase 182 Total Protein 6.2 Albumin 3.8 Globulin 2.4 Albumin/Globulin Ratio 1.6 Triglycerides 127 - Imaging and Cardiology CT scan - head Additional comments: Impression: -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 -Mild generalized cerebral atrophy -No acute abnormality Medical - DS: A/P - Patient/Caregiver Discharge Instructions Activity: increase activity as tolerated Diet: Regular Diet Additional Instructions: Do not take your spironolactone until Dr. Sauceda says it is OK Take the potassium supplement when you are not taking spironolactone - Problem Maintenance (1) Nausea and vomiting Status: Resolved Qualifiers: Vomiting type: unspecified Vomiting Intractability: intractable Qualified Code(s): R11.2 - Nausea with vomiting, unspecified (2) Acute on chronic renal failure Status: Resolved Qualifiers: Acute renal failure type: unspecified Chronic kidney disease stage: stage 3 (moderate) Qualified Code(s): N17.9 - Acute kidney failure, unspecified; N18.3 - Chronic kidney disease, stage 3 (moderate) (3) Atrial fibrillation Status: Chronic Qualifiers: Atrial fibrillation type: chronic Qualified Code(s): I48.2 - Chronic atrial fibrillation (4) Esophageal reflux Status: Chronic Qualifiers: Esophagitis presence: esophagitis presence not specified Qualified Code(s) : K21.9 - Gastro-esophageal reflux disease without esophagitis - Follow up Plan Follow up with: Nydia Sauceda MD [Physician] - 06/16/17 (Call to set up a time on 06/16/17) Disposition: Home, Self-Care Prognosis: Good Rehab Potential: Good Overall status at discharge: patient is progressing back to baseline Medical - DS: Qual - VTE Deep Vein Thrombosis/Pulmonary Embolism Present on Admission: No
== END 2017-06-14 17:56 | disposition home or self-care (01) | DRG 684 ==
LOC: MEDSUR 12:03
PROVIDERS: ADMIT Internal Medicine; ATTEND Internal Medicine